=== PATIENT | male | born 1945 | race Caucasian/White ===

== ENCOUNTER → 2017-07-08 | Outpatient (CLI) | payer MEDICARE, BC ==
--- NOTE | 2017-07-08 16:26 | US ---
EXAM DESCRIPTION: Venous,Lower Extremity LT (accession [id number]), Venous,Lower Extremity RT (accession [id number]) CLINICAL HISTORY: LEG PAIN COMPARISON: None Available. TECHNIQUE: Lateral lower extremity venous duplex examination with grayscale, color Doppler imaging, and spectral pulse Doppler evaluation. FINDINGS: On the right, the examination is normal from the level of the inguinal ligament at the common femoral vein through the popliteal region and into the calf. Normal spontaneous phasic flow with augmentation and compressibility is present throughout. No filling defects are noted. The greater saphenous vein is patent with normal flow and compressibility. On the left, the patient has a history of previous DVT. The common femoral vein is widely patent with and normally compressible in the femoral bifurcation including the insertion of the profunda femoris and the proximal several centimeters of the superficial femoral are patent. There is long segment occlusion of the superficial femoral vein from near its insertion into the common femoral vein extending distally to near the popliteal vein with a small contracted noncompressible vein with no flow. The appearance is most typical of a a chronic thrombosis. The left popliteal vein is widely patent and normally compressible. Patency of the peroneal and posterior tibial as well as saphenous vein is noted. IMPRESSION: 1. Normal right lower extremity deep venous sonography with no evidence of deep venous thrombosis. 2. Long segment occlusion with a contracted small thrombosed superficial femoral vein from near the popliteal vein to near the common femoral vein consistent with chronic occlusion. 3. The left deep venous system is patent from the popliteal vein distally into the leg and patent at the common femoral vein. Electronically signed by: Ted Wheatley MD 07/08/2017 4:25 PM CDT
== END ==
LOC: US 11:00
PROVIDERS: ATTEND Nurse Practitioner Family
DX: I73.9 Peripheral vascular disease, unspecified (principal); I82.412 Acute embolism and thrombosis of left femoral vein

== ENCOUNTER → 2017-07-30 | Outpatient (CLI) | payer MEDICARE, OTHER | END | disposition home or self-care (01) | LOC: LAB.O 13:48 | PROVIDERS: ATTEND Nurse Practitioner Family | DX: G44.209 Tension-type headache, unspecified, not intractable (principal) ==

== ENCOUNTER → 2017-07-31 | Outpatient (CLI) | payer MEDICARE, OTHER ==
--- NOTE | 2017-08-03 09:58 | CT ---
EXAM DESCRIPTION: Head w/wo Contrast CLINICAL HISTORY: 71 years, Male, HEADACHE, G44.209 COMPARISON: None TECHNIQUE: Head CT was performed with and without IV contrast. This exam was performed according to our departmental dose-optimization program, which includes automated exposure control, adjustment of the mA and/or kV according to patient size and/or use of iterative reconstruction technique. FINDINGS: Pre-IV contrast images show no acute intracranial hemorrhage. No midline shift or other mass effect. The ventricles and basilar cisterns are well maintained. Mild chronic ischemic changes are present in the periventrical white matter without cortical edema or sulcal effacement to suggest acute cortical infarct. The basal ganglia are unremarkable. No posterior fossa lesion. Vascular calcifications are noted. Visualized paranasal sinuses and orbits are clear. There is patchy opacification of the ethmoid air cells. No calvarial fracture. Postcontrast images show only physiologic vascular enhancement without enhancing intracranial mass.. IMPRESSION: Vascular calcifications and mild chronic ischemic changes, but no acute intracranial abnormality, intracranial mass or additional finding to explain patient's symptoms Electronically signed by: Jones Diggs MD 08/03/2017 9:57 AM CDT
== END | disposition home or self-care (01) ==
LOC: CT 13:16
PROVIDERS: ATTEND Nurse Practitioner Family
DX: G44.209 Tension-type headache, unspecified, not intractable (principal)

== ENCOUNTER → 2017-12-11 | Outpatient (CLI) | payer MEDICARE, OTHER | LOC: LAB.O 10:05 | PROVIDERS: ATTEND Nurse Practitioner Family | DX: R68.83 Chills (without fever) (principal) ==

== ENCOUNTER 2018-08-16 05:35 | Day surgery (SDC) | payer MEDICARE, OTHER ==
[2018-08-16] MEDS ORDERED: MIDAZOLAM INJ 2 MG/2 ML VIAL ONE (06:41)
[2018-08-16] MEDS ORDERED: TROP 1%/CYCLOPEN 1%/PHENYL 2% DROPS ONE (08:42)
[2018-08-16] MEDS: PROPARACAINE 0.5% OPHTH SOL 15 ML BTTL ONE (11:35)
[2018-08-16] MEDS: LIDOCAINE 1% MPF 5 ML VIAL INJ ONE (11:42)
[2018-08-16] MEDS: TOBRAMYCIN SULF 0.3 % OPHT SOL 1 DROP RIGHT_EYE ONE ×2 (11:50→11:57)
[2018-08-16] MEDS: DEXAMETHASONE 0.1% OPHTH SOL 1 DROP RIGHT_EYE ONE ×2 (11:50→11:57)
[2018-08-16] MEDS: BRIMONIDINE 0.2% OPHTH DROPS RIGHT_EYE ONE ×2 (11:51→11:57)
== END 2018-08-17 12:35 | disposition home or self-care (01) ==
LOC: AMB 05:35
PROVIDERS: ATTEND Ophthalmology
DX: H25.11 Age-related nuclear cataract, right eye (principal); I10 Essential (primary) hypertension; I25.10 Atherosclerotic heart disease of native coronary artery without angina pectoris; K21.9 Gastro-esophageal reflux disease without esophagitis; Z88.0 Allergy status to penicillin; Z88.8 Allergy status to other drugs, medicaments and biological substances; Z87.891 Personal history of nicotine dependence; Z79.899 Other long term (current) drug therapy
CPT/HCPCS: 00142; 66984; J2250

== ENCOUNTER 2018-08-30 05:35 | Day surgery (SDC) | payer MEDICARE, OTHER ==
[2018-08-30] MEDS ORDERED: TROP 1%/CYCLOPEN 1%/PHENYL 2% DROPS ONE (08:35)
[2018-08-30] MEDS ORDERED: PROPARACAINE 0.5% OPHTH SOL 15 ML BTTL ONE (08:35)
[2018-08-30] MEDS ORDERED: MIDAZOLAM INJ 2 MG/2 ML VIAL ONE ×2 (09:32→10:51)
[2018-08-30] MEDS ORDERED: PROPARACAINE 0.5% OPHTH SOL 15 ML BTTL LEFT_EYE ONE (10:10)
[2018-08-30] MEDS ORDERED: LIDOCAINE 1% PF 2 ML AMP INJ ONE ×2 (10:24→10:55)
[2018-08-30] MEDS ORDERED: TOBRAMYCIN SULF 0.3 % OPHT SOL 1 DROP LEFT_EYE ONE ×2 (10:24→11:10)
[2018-08-30] MEDS ORDERED: DEXAMETHASONE 0.1% OPHTH SOL 1 DROP LEFT_EYE ONE ×2 (10:24→11:10)
[2018-08-30] MEDS ORDERED: BRIMONIDINE 0.2% OPHTH DROPS LEFT_EYE ONE ×2 (10:25→11:10)
== END 2018-08-30 11:40 | disposition home or self-care (01) ==
LOC: AMB 05:35
PROVIDERS: ATTEND Ophthalmology
DX: H25.12 Age-related nuclear cataract, left eye (principal); I10 Essential (primary) hypertension; I25.10 Atherosclerotic heart disease of native coronary artery without angina pectoris; I25.2 Old myocardial infarction; Z95.5 Presence of coronary angioplasty implant and graft; K21.9 Gastro-esophageal reflux disease without esophagitis; Z88.0 Allergy status to penicillin; Z88.8 Allergy status to other drugs, medicaments and biological substances; Z79.899 Other long term (current) drug therapy
CPT/HCPCS: 00142; 66984; J2250

== ENCOUNTER → 2018-12-23 | Outpatient (CLI) | payer MEDICARE, OTHER ==
--- NOTE | 2018-12-23 13:46 | US ---
EXAM DESCRIPTION: Venous,Lower Extremity LT: ULTRASOUND. CLINICAL HISTORY: PERSONAL HX OF OTHER VENOUS THROMBOSIS AND EMBOLISM COMPARISON: CT scan of the abdomen and pelvis on the same visit. TECHNIQUE: Osman-scale and doppler sonographic evaluation of the deep venous system of the left lower extremity. FINDINGS: Doppler evaluation loss of normal color flow and venous waveform at the bifurcation of the left common femoral vein, left proximal femoral vein, and left deep femoral vein. Grayscale evaluation shows these veins are not compressible at the bifurcation. Shows normal color flow and normal phasicity and augmentation of the proximal left common femoral vein, mid and distal left femoral vein, popliteal vein, greater saphenous vein, peroneal, anterior and posterior tibial vein. These left lower extremity deep veins (with normal Doppler parameters) were completely compressible; normal occlusion with transducer pressure. Osman-scale survey showed no echogenic thrombus within these veins. IMPRESSION: 1. Duplex ultrasound evaluation of the left lower extremity deep venous system showing thrombosis at the bifurcation of the left common femoral vein into the left deep femoral vein and left femoral vein.. 2. No thrombosis in the remaining left lower extremity deep veins. CRITICAL COMMUNICATION: The critical value was discussed directly by phone by the jewelry coater , Ms. Dionna Low RDMS, (V), with Mr. Richard Rivera, family nurse practitioner at approximately 1200 hours, on December 23, 2018. Electronically signed by: Slade Laura MD 12/23/2018 1:44 PM LAMINATION BUILDER
--- NOTE | 2018-12-23 14:25 | CT ---
EXAM DESCRIPTION: Abdomen/Pelvis w/wo Contrast: Computed Tomography. CLINICAL HISTORY: LEFT LOWER QUADRANT PAIN. Previous left inguinal hernia. Multiple abdominal surgeries. Prior abdominal cancer. COMPARISON: Duplex ultrasound evaluation of the left lower extremity deep venous system. TECHNIQUE: Spiral-axial scans at 5 x 5 mm intervals through the abdomen and pelvis before and after standard dose nonionic IV contrast. No oral contrast. Coronal and sagittal 2.0 mm reconstructions. 5 mm Delayed helical-axial scans, liver through the pubic symphysis. No adverse reactions. Total Exam DLP 1754.22 mGy - cm. This exam was performed according to our departmental CT dose-optimization program which includes automated exposure control, adjustment of the mA and/or kV according to patient size and/or use of iterative reconstruction technique; to reduce radiation dose to as low as reasonably achievable (ALARA). FINDINGS: Lung bases and pleura: Bilateral pleural thickening more on the right. Right lower lobe pleural parenchymal scars. Coronary artery and thoracic aortic atherosclerotic calcifications Liver, Stomach, Spleen, Adrenal Glands: Overall low-density in the liver. Normal enhancement. Stomach and remaining organs are unremarkable. Radiodense food or medications in the stomach. Pancreas, Gallbladder, Ducts: Surgical clips in the gallbladder fossa with no fluid. Atrophy of the pancreas and fatty infiltration. Common bile duct unremarkable. Kidneys and Ureters: Unremarkable. Mesentery: No fatty stranding or fascial thickening free air or free fluid. Aorta: Moderate atherosclerotic calcification more distally with narrowing of the distal aorta. Bilateral significant narrowing common iliac arteries. Small Bowel: Contains fluid and gas intermittently with no distention or significant air-fluid levels. Terminal Ileum/Cecum: Minimal distention by gas and fluid. Normal caliber of the appendix. Normal density of the surrounding fat. Colon: Diffuse gas and fecal matter. Redundant sigmoid colon.. No complications. Pelvic Organs: TURP defect in the prostate gland which contains minimal calcifications. Minimal bladder wall thickening. No pelvic fluid or soft tissue mass. Spine and Bony Pelvis: Thoracolumbar levoscoliosis. L5-S1 and L4-5 spondylolisthesis. Significant bilateral L4-5 foraminal narrowing. Bilateral mild hip arthrosis. Abdominal Wall/Back Soft Tissues: Small fatty inguinal hernia on the left not containing bowel. Surgical scarring anterior abdominal wall. Small midline defect superior to the umbilicus with slight protrusion of gas-filled small bowel into the defect but no complete bowel herniation. IMPRESSION: 1. Fatty infiltration of the liver. No ascites. No duct dilation. Prior cholecystectomy. Fatty infiltration and marked atrophy of the pancreas. 2. Small fatty inguinal hernia on the left not containing bowel. Anterior midline supraumbilical defect with loop of small bowel partially entering the defect but no strangulation or incarceration. No fatty stranding or fluid collection. 3. L4-5 and L5-S1 spondylosis. 4. Advanced atherosclerotic disease of the distal abdominal aorta and bilateral common iliac arteries. 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
== END ==
LOC: US 10:02
PROVIDERS: ATTEND Nurse Practitioner Family
DX: K40.90 Unilateral inguinal hernia, without obstruction or gangrene, not specified as recurrent (principal); K76.0 Fatty (change of) liver, not elsewhere classified; K86.89 Other specified diseases of pancreas; I10 Essential (primary) hypertension; I70.0 Atherosclerosis of aorta; I70.8 Atherosclerosis of other arteries; I82.412 Acute embolism and thrombosis of left femoral vein; Z86.718 Personal history of other venous thrombosis and embolism

== ENCOUNTER → 2021-01-02 | Outpatient (CLI) | payer MEDICARE, OTHER | LOC: GMALP 13:02 | PROVIDERS: ATTEND Family Medicine | DX: Z12.5 Encounter for screening for malignant neoplasm of prostate (principal); I10 Essential (primary) hypertension; E11.9 Type 2 diabetes mellitus without complications ==

== ENCOUNTER → 2021-01-09 | Outpatient (CLI) | payer MEDICARE, OTHER ==
--- NOTE | 2021-01-09 16:43 | US ---
EXAM DESCRIPTION: Venous,Lower Extremity LT: ULTRASOUND. CLINICAL HISTORY: venous thrombosis history COMPARISON: Duplex ultrasound evaluation of the left lower extremity deep venous system December 2018. TECHNIQUE: Osman-scale and doppler sonographic evaluation of the deep venous system of the left lower extremity. FINDINGS: Doppler evaluation shows decreased color and lack of phasicity and augmentation of the left proximal and mid femoral vein. Grayscale evaluation showing echogenic thrombus and lack of compressibility with the transducer. Doppler evaluation showing normal color flow and normal phasicity and augmentation of the left common femoral vein, left distal femoral vein, popliteal vein, left greater saphenous vein, junction with the CFV. Also normal color flow and normal phasicity and augmentation of the left peroneal, and posterior tibial vein. These left lower extremity deep veins were completely compressible; normal occlusion with transducer pressure. Osman-scale survey showed no echogenic thrombus within these veins. IMPRESSION: 1. Duplex ultrasound evaluation of the left lower extremity deep venous system thrombosis in the proximal and mid left femoral vein. The study in December 2018 showed thrombosis in the bifurcation of the left common femoral vein, the proximal left femoral vein and proximal left deep femoral vein. 2. Normal Doppler and grayscale evaluation of the left common femoral vein, distal left femoral vein, and the more distal veins of the deep venous system. Please see above. Electronically signed by: Slade Laura MD 01/09/2021 4:41 PM [facility]
== END ==
LOC: US 14:45
PROVIDERS: ATTEND Family Medicine
DX: I82.412 Acute embolism and thrombosis of left femoral vein (principal); Z86.718 Personal history of other venous thrombosis and embolism